=== PATIENT | female | born 1980 | race Caucasian/White ===

== ENCOUNTER → 2018-10-04 12:05 | Outpatient (CLI) | payer MEDICAID, SELFPAY ==
[2018-10-01 14:27] VITALS: BMI 20.3
[2018-10-04 13:11] LABS: AST(SGOT) 15 U/L (15-37); Alanine Aminotransfer ALT/SGPT 19 U/L (13-56); Albumin, Serum 3.6 g/dL (3.2-5.0); Alkaline Phosphatase 56 U/L (45-117); Bilirubin, Direct 0.09 mg/dL (0.00-0.30); Cholesterol 163 mg/dL (200); Globulin 3.1 g/dL (2.2-4.2); High Density Lipoprotein 55 mg/dL; Protein, Total 6.7 g/dL (6.4-8.2); Triglycerides 123 mg/dL; Very Low Density Lipoprotein 25 mg/dL (5-40)
== END ==
PROVIDERS: Referring Provider Internal Medicine Cardiovascular Disease; Visit Provider Internal Medicine Cardiovascular Disease
DX: I47.1 Supraventricular tachycardia (principal); R00.2 Palpitations; Z72.0 Tobacco use
CPT/HCPCS: 36415; 80061; 80076

== ENCOUNTER → 2018-10-15 | Outpatient (CLI) | payer MEDICAID, SELFPAY ==
[2018-10-01 14:27] VITALS: BMI 20.3
--- NOTE | 2018-10-15 09:25 | ECHOD_ITS ---
Reason For Study: Palps Procedure This was a 2D Doppler, Color Flow transthoracic echocardiogram. Exam performed in department. Left Ventricle Normal size and thickness. The estimated ejection fraction is 65 %. Normal diastology for age. No regional wall motion abnormalities noted. Right Ventricle Normal size and thickness. Normal systolic function. Atria Normal left atrium. Normal right atrium. Normal atrial septum. Mitral Valve The mitral valve is structurally normal. No prolapse or stenosis seen. Trivial mitral valve insufficiency. Tricuspid Valve Normal tricuspid valve. Unable to estimate RV systolic pressure due to inadequate jet, pulmonary artery pressure probably normal. Aortic Valve Normal aortic valve. Trisinus/trileaflet aortic valve. Pulmonic Valve Normal pulmonic valve. Great Vessels Normal aortic root. Normal arch. Normal inferior vena cava. Inferior vena cava collapse with sniff. Pericardium/Pleural No pericardial effusion. MMode/2D Measurements & Calculations LVIDd: 4.0 cm IVSd: 0.97 cm Ao root diam: 2.9 cm LVIDs: 2.4 cm LVPWd: 0.87 cm RVDd: 2.8 cm FS: 39.5 % LAV(MOD-bp): 30.7 ml LA A4 area: 14.0 cm2 LA dimension(2D): 2.3 cm LAV(MOD-bp) Indexed: 17.3 ml/m2 LAV(MOD-sp2): 26.8 ml LAV(MOD-sp4): 29.3 ml RA A4 area: 11.3 cm2 Doppler Measurements & Calculations MV E max regis: 74.1 cm/sec Lat Peak E' Regis: 15.6 cm/sec Med Peak E' Regis: 11.8 cm/sec MV A max regis: 47.3 cm/sec E/E' lat: 4.8 E/E' med: 6.3 MV E/A: 1.6 Ao V2 max: 116.4 cm/sec LV V1 max: 106.4 cm/sec PA V2 max: 83.7 cm/sec Ao max P.4 mmHg LV V1 max P.5 mmHg Interpretation Summary The estimated ejection fraction is 65 %. Normal diastology for age. Trivial mitral valve insufficiency. Unable to estimate RV systolic pressure due to inadequate jet, pulmonary artery pressure probably normal. Compared to echo report dated 03/27/2013, no appreciable changes noted. Ordering Physician: Bill Ramirez Referring Physician: Bill Ramirez Performed By: Paola Yanes RDCS
== END | disposition home or self-care (01) ==
LOC: CVS 09:25
PROVIDERS: Referring Provider Internal Medicine Cardiovascular Disease; Visit Provider Internal Medicine Cardiovascular Disease
DX: I45.10 Unspecified right bundle-branch block (principal); I47.1 Supraventricular tachycardia; R00.2 Palpitations
CPT/HCPCS: 93306

== ENCOUNTER → 2018-11-06 12:03 | Outpatient (CLI) | payer MEDICAID, SELFPAY ==
[2018-10-01 14:27] VITALS: BMI 20.3
--- NOTE | 2018-11-07 14:04 | STRESSREP ---
Stress Test Report Treadmill EKG report: Resting EKG: Normal sinus rhythm, normal axis, early repolarization normality most likely due to young age. Treadmill EKG: The patient exercise according to a Anthony protocol for a total of 8 minutes and 16 seconds achieving a maximum workload of 10.10 METS. Resting heart rate was initially 81 beats a minute and edita to maximum 155 bpm represents 85% of the maximal age-predicted heart rate. Resting blood pressure is 108/70, and edita to maximum 147/70. Test was terminated due to right hip pain. During exercise patient's heart rate increased as expected. She had subtle upsloping ST segment depression along the inferior lateral leads at peak exercise however this quickly resolved by 1 minute into recovery. No arrhythmias noted. Conclusions normal, adequate, treadmill EKG. Negative for ischemia by EKG criteria. No anginal symptoms noted. No arrhythmias noted. Average exercise capacity for age. Appropriate blood pressure response to exercise. No complications.
== END ==
PROVIDERS: Referring Provider Physician Assistant Medical; Visit Provider Physician Assistant Medical
DX: I47.1 Supraventricular tachycardia (principal)
CPT/HCPCS: 93017

== ENCOUNTER 2020-05-14 08:34 | Emergency (ER) | payer OTHER, SELFPAY ==
[2019-05-15 15:54] VITALS: BMI 20.7
[2020-05-14 08:36] VITALS: BP 143/97; PULSE 99; RESP 18; TEMP 36.6; O2SAT 100; BMI 21.4
--- NOTE | 2020-05-14 09:05 | ED.DCSUM_ITS ---
History of Present Illness Chief Complaint: Laceration Informant: Patient Narrative: 40-year-old female presents with left forearm lacerations. A window fell down onto it. No broken glass or concern for foreign body. She has full range of motion of the arm and denies weakness, numbness, or tingling. Last tetanus unknown. Past Medical History - Allergies and Home Meds Allergies/Adverse Reactions: Allergies No Known Allergies Allergy (Verified 05/14/20 08:38) Primary Care Physician: Care Physician,No Primary [Primary Care Provider] - Prior records reviewed: Yes Smoking Status: Current every day smoker Review of Systems General: Denies: Chills, Fever, Sweats Eyes: Denies: Visual changes - bilaterally, Diplopia ENT: Denies: Rhinorrhea, Sore throat Cardiovascular: Denies: Chest pain, Palpitations Respiratory: Denies: Dyspnea, Cough Musculoskeletal: Denies: Back pain, Extremity Pain Skin: Reports: Wounds. Denies: Rash Neurological: Reports: Headache. Denies: Weakness, Parasthesia, Numbness Physical Exam Vital Signs/Narrative: Vital Signs Temp Pulse Resp BP Pulse Ox 05/14/20 08:36 97.9 F 99 18 143/97 H 100 Inital Vital Signs reviewed: Yes General: Well nourished, Well developed, No Acute Distress Head: Normocephalic, Atraumatic Eyes: EOMI Neck: Supple Cardiovascular: Regular rate, Regular rhythm, No murmurs Respiratory: No distress, CTA bilaterally, Chest nontender Skin: - - 4 cm laceration on left anterior forearm distal to the antecubital fossa. 3 cm laceration on left lateral forearm. No underlying tendons visualized. No foreign body. Neurological: Alert, Oriented x3, Cranial nerves II-XII grossly intact, Normal Strength, Normal Sensation, - - Full range of motion of the left upper extremity. 2+ radial pulse. Sensation intact in median, ulnar, and radial distributions. Strength intact. Diagnostic/Tx/Re-eval - Medical Decision Making Patient presented with 2 lacerations to her left forearm. She is neurovascularly intact. No foreign bodies. She has a 4 cm laceration on the left anterior forearm distal to the antecubital fossa and a 3 cm laceration on the lateral forearm. The larger laceration was anesthetized with 4 cc of 1% lidocaine and the smaller laceration with 2 cc of 1% lidocaine. They were thoroughly irrigated with sterile saline. Wounds explored and there is no foreign body. She is neurovascularly intact and there is no indication for x- ray. Larger laceration was closed with 5-0 Ethilon placing 5 simple interrupted sutures. The lateral laceration was closed with 3 simple interrupted sutures of 5-0 Ethilon. There was good wound approximation. Discussed general wound care and that sutures need removed in 10 to 14 days. Tetanus was updated. She was discharged home in stable condition. ED Disposition - Plan for ED Patient: Disposition: Home or Assisted Living Diagnosis: Laceration of forearm without complication Instructions: ED Laceration All Closures Referrals: Care Physician,No Primary [Primary Care Provider] -
[2020-05-14 10:49] VITALS: BP 129/68; PULSE 74; RESP 15; O2SAT 99
== END 2020-05-14 10:50 | disposition home or self-care (01) ==
PROVIDERS: Emergency Provider Physician Assistant
DX: S51.812A Laceration without foreign body of left forearm, initial encounter (principal); W20.8XXA Other cause of strike by thrown, projected or falling object, initial encounter; Y92.9 Unspecified place or not applicable; Y99.9 Unspecified external cause status; F17.200 Nicotine dependence, unspecified, uncomplicated; Z23 Encounter for immunization
CPT/HCPCS: 12002; 99284; J1670

== ENCOUNTER 2023-03-27 21:29 | Emergency (ER) | payer SELFPAY ==
[2023-03-27 21:31] VITALS: BP 111/67; PULSE 111; RESP 15; TEMP 36.6; O2SAT 98; BMI 19.0
--- NOTE | 2023-03-27 22:30 | RAD_ITS ---
INDICATION: SOB EXAMINATION/TECHNIQUE: X-RAY - XR Chest 1 View COMPARISON: Prior study dated: 07/17/2017 FINDINGS: LINES/DEVICES: None. LUNGS: The lungs are hyperexpanded. No consolidation, edema or effusion. No pneumothorax. Mild apical pleural thickening bilaterally. MEDIASTINUM AND CARDIOVASCULAR STRUCTURES: Cardiac silhouette not enlarged. Central airways and mediastinal contour are unremarkable. BONES AND SOFT TISSUES: Unremarkable. RAD/Chest 1 View (Portable) IMPRESSION: Hyperexpanded, clear lungs. Electronically Signed: Rick Washington MD at 22:43 EDT ,
--- NOTE | 2023-03-27 23:11 | EX.ED.DYSGE1 ---
HPI History of Present Illness Chief Complaint: General Illness Informant: patient Narrative Narrative: Patient is a 43-year-old female with past medical history of tobacco use. She states over the past 2 to 3 days she had increased congestion drainage cough and sensation of fatigue and shortness of breath. She denies any known sick contacts but states that she feels symptoms are slowly worsening and not improving and with concern for infection presents for evaluation [facility] Medical History (Updated 03/28/23 @ 04:[address] Taz Tomas, DO) Incomplete right bundle branch block Nicotine abuse Palpitations Paroxysmal supraventricular tachycardia Shortness of breath Medical History no medical history Home Medications metoprolol succinate 25 mg tablet,extended release 24 hr 25 mg PO QDAY #90 tabs 02/19/23 [Rx Last Taken Unknown] albuterol sulfate 90 mcg/actuation aerosol inhaler (Ventolin HFA) 1 - 2 puff inhalation Q4H PRN PRN SOB/Wheezing #1 device 03/27/23 [Rx Last Taken Unknown] azelastine 137 mcg (0.1 %) nasal spray aerosol 2 spray intranasal BID #30 mL 03/27/23 [Rx Last Taken Unknown] prednisone 20 mg tablet 40 mg (2 x 20 mg) PO DAILY 7 days #14 tabs 03/27/23 [Rx Last Taken Unknown] Allergy/AdvReac Type Severity Reaction Status Date / Time No Known Allergies Allergy Verified 03/27/23 21:33 Surgical History History of History of tonsillectomy Social History Smoking Status: Former smoker alcohol intake: never substance use type: does not use caffeine: Yes Type: coffee Number of servings: 1 and tea Number of servings: 2 ROS ROS ED Constitutional Constitutional ED: Denies chills or fever(s) ENT ENT ED: Reports rhinorrhea and sore throat Cardiovascular Cardiovascular: Denies chest pain Respiratory/Chest Respiratory/Chest: Reports cough and dyspnea Gastrointestinal Gastrointestinal: Reports nausea; Denies abdominal pain, diarrhea or vomiting Genitourinary Genitourinary ED: Denies dysuria Musculoskeletal Musculoskeletal: Reports myalgias Integumentary Denies rash Neurologic Neurologic: Reports weakness; Denies headache(s) Hematologic/Lymphatic Hematologic/Lymphatic: Denies easy bleeding or easy bruising EXAM Physical Exam Const Vital Signs: 03/27/23 21:31 03/27/23 22:23 03/27/23 23:31 Temperature 97.9 F Temperature Source Temporal Pulse Rate 111 H 74 Respiratory Rate 15 18 Respiratory Effort Normal Non-Labored Respiratory Pattern Normal Blood Pressure 111/67 Blood Pressure Mean 81 Pulse Ox 98 97 Oxygen Delivery Method Room Air Positive well nourished and well developed General Appearance ED: well developed HEENT HEENT Narrative: Nasal mucosa is hyperemic and boggy with enlarged inferior nasal turbinates There is cobblestoning the posterior pharynx consistent with sinus drainage without airway edema or compromise or secondary changes in the posterior pharynx to suggest infection Eyes PERRL and EOMs intact bilaterally General Eye ED: Negative for pale conjunctiva Neck supple Neck Narrative: No nuchal rigidity or meningeal signs noted Chest Wall palpation of chest normal Chest Narrative: No bony deformity or crepitance Resp normal respiratory effort Resp Narrative: Breath sounds are diminished throughout with faint expiratory wheeze in the bilateral bases but otherwise no nasal flaring or retractions tachypnea or accessory muscle use Cardio regular rate and regular rhythm Extremity normal to inspection Extremity Narrative: No asymmetric edema no pitting edema negative Homans' sign bilaterally Neuro oriented x3 and CN's II-XII intact bilaterally Sensorium / Orientation: alert Psych mental status grossly normal Skin no rashes or lesions noted MDM MDM MDM Narrative Medical decision making narrative: Patient presented to the ER with stable vitals and satting 97 to 100% on room air with no signs of respiratory distress. Differential diagnosis is for viral upper respiratory tract infection versus pneumonia versus pneumothorax versus pleural effusion. Secondary to this a chest x-ray and COVID swab were obtained. Chest x-ray revealed no acute lung pathology and COVID test was negative. On reevaluation she is resting comfortably and remains in no acute respiratory distress. Therefore at this time as symptoms are most consistent with viral URI and work-up reveals no signs of pneumonia and patient does not have need for supplemental oxygen there is no need for further evaluation and she can be safely discharged home with symptomatic care History & Record Review Discussion w/independent historian: Patient Radiography Diagnostic Testing: Clinical Impression(s) from Imaging Studies Chest X-Ray 03/27/23 22:30 IMPRESSION: Hyperexpanded, clear lungs. Electronically Signed: Rick Washington MD at 22:43 EDT , 2 view chest x-ray as interpreted by the emergency medicine physician reveals no acute infiltrate pneumothorax or pleural effusion Discharge Plan Triage Chief Complaint: General Illness ED Provider: Taz Tomas Dx/Rx/DC Orders Clinical Impression: Viral upper respiratory tract infection with cough, Nicotine abuse Instructions: ED URI, Viral, No Abx (Adult) Prescriptions: New prednisone 20 mg tablet 40 mg PO DAILY 7 Days Qty: 14 0RF azelastine 137 mcg (0.1 %) aerosol,spray 2 spray intranasal BID Qty: 30 0RF Rx Instructions: administer into each nostril albuterol sulfate [Ventolin HFA] 90 mcg/actuation HFA aerosol inhaler 1 - 2 puff inhalation Q4H PRN PRN (Reason: SOB/Wheezing) Qty: 1 0RF No Action metoprolol succinate 25 mg tablet extended release 24 hr 25 mg PO QDAY Qty: 90 3RF Stand Alone Forms: ED Work / School Excuse Primary Care Provider: Care Physician,No Primary Referrals: Marquez Lee MD [Med Staff - Active Staff] - Care Physician,No Primary [Primary Care Provider] - Activity Restrictions/Additional Instructions: Your x-ray shows no pneumonia and your COVID and flu swabs are negative but your history and exam is indicated of of a other type of viral upper respiratory tract infection. This will last on average 18 to 21 days with the first 7 days being the most severe. Take your medication as directed to help control symptoms and return to the ER should you have any further concerns Disposition Disposition: Home, Self Care Discharge Date/Time: 03/27/23 23:31
[2023-03-27] MEDS: Albuterol Sulfate 8 gm Inhaler (60 puffs) 2 PUFF INHALATION (23:29)
[2023-03-27] MEDS: predniSONE 20 MG Tablet 60 MG PO (23:29)
[2023-03-27 23:31] VITALS: PULSE 74; RESP 18; O2SAT 97
== END 2023-03-27 23:31 | disposition home or self-care (01) ==
PROVIDERS: Emergency Provider Emergency Medicine; Visit Provider Emergency Medicine
DX: J06.9 Acute upper respiratory infection, unspecified (principal); R05.9 Cough, unspecified; Z72.0 Tobacco use
CPT/HCPCS: 71045; 87428; 99283

== ENCOUNTER → 2024-05-13 | Outpatient (CLI) | payer OTHER, SELFPAY ==
[2024-05-13 16:30] LABS: Absolute Lymphocyte Count 1.79 X10^3/uL (0.83-4.51); Absolute Neutrophil Count 2.5 X10^3/uL (2.0-7.7); Basophil# 0.08 X10^3/uL; Basophil% 1.5 % (0-1); Eosinophil# 0.54 X10^3/uL; Eosinophils% 9.9 % (0-5); Hematocrit 40.9 % (37-47); Hemoglobin 12.7 g/dL (12.0-15.0); Lymphocyte # 1.79 X10^3/ul (0.83-4.51); Lymphocyte % 32.8 % (19-41); Mean Corp Hgb Conc 31.1 g/dL (32-36); Mean Corpuscular Hgb 26.2 pg (27.0-32.0); Mean Corpuscular Volume 84.3 fL (81-99); Mean Platelet Vol. 10.2 fl (6.2-12.0); Monocyte# 0.52 X10^3/uL; Monocyte% 9.5 % (0-10); NRBC Flagged by Analyzer 0 % (0-5); Neutrophil # 2.52 X10^3/uL (2.7-7.7); Neutrophil % 46.1 % (47-70); Platelet Count 259 K/mm3 (150-450); RBC Distribution Width CV 17.3 % (11.6-14.6); RBC Distribution Width SD 53.1 fl (35.1-43.9); Red Blood Count 4.85 M/mm3 (4.2-5.4); White Blood Count 5.5 K/mm3 (4.4-11.0)
[2024-05-13 17:02] LABS: Anion Gap 5 (5-15); BUN 13 mg/dL (7-18); BUN/Creat Ratio 17.3 RATIO (10-20); Calcium,Total 8.9 mg/dL (8.5-10.1); Chloride 104 mmol/L (98-107); Creatinine, Serum 0.75 mg/dL (0.55-1.02); EST Glomerular Filtration Rate 89 mL/min (>60); Est Glom Filt Rate - Afr Amer 108 mL/min (>60); Glucose 103 mg/dL (74-106); Magnesium 2.3 mg/dL (1.6-2.6); Potassium 4.5 mmol/L (3.5-5.1); Sodium Level 137 mmol/L (136-145)
== END | disposition home or self-care (01) ==
LOC: LAB 16:00
PROVIDERS: Referring Provider Nurse Practitioner Gerontology; Visit Provider Nurse Practitioner Gerontology
DX: R00.2 Palpitations (principal)
CPT/HCPCS: 36415; 80048; 83735; 84443; 85025